=== PATIENT | male | born 1930 | race Caucasian/White ===

== ENCOUNTER 2021-06-25 08:23 | Emergency (ER) | payer MEDICARE ==
[~2021-06-25] VITALS: Wt 77.1 kg
[2021-06-25 09:30] LABS: BASO % 0.2 % (0.0-1.0); HEMATOCRIT 37.4 % (42.0-52.0); LYMPH # 0.5 10*3/uL (1.3-4.4); MEAN CELL VOLUME 92.8 fl (80.0-94.0); MEAN CORPUSCULAR HGB CONC 34.5 g/dl (33.0-37.0); MEAN PLATELET VOLUME 9.4 fl (9.6-12.3); MONO # 0.7 10*3/uL (0.1-1.0); MONO % 6.3 % (3.0-9.0); PLATELET COUNT AUTOMATED 208 10*3/uL (130-400); RED BLOOD COUNT 4.03 10*6/uL (4.50-5.90); RED CELL DISTRI WIDTH 12.7 % (0-14.5); WHITE BLOOD COUNT 11.2 10*3/uL (4.8-10.8)
[2021-06-25 09:56] LABS: ALBUMIN 2.8 gm/dl (3.1-4.5); ALKALINE PHOSPHATASE 75 U/L (45-117); BUN 15 mg/dl (7-24); CHLORIDE 95 mmol/L (98-107); CPK 203 U/L (39-308); CREATININE 0.82 mg/dL (0.70-1.30); SGOT/AST 44 IU/L (3-35); SGPT/ALT 25 U/L (12-78); SODIUM 124 mmol/L (136-145); TOTAL PROTEIN 6.5 gm/dL (6.4-8.2)
[2021-06-25 10:09] LABS: ACT PARTIAL THROMBO TIME 42.1 SECONDS (20.0-32.1)
== END 2021-06-25 10:29 | disposition left against medical advice (07) ==
LOC: ED 08:23
PROVIDERS: Emergency Medicine
DX: U07.1 COVID-19 (principal); J12.82 Pneumonia due to coronavirus disease 2019; E87.1 Hypo-osmolality and hyponatremia; R09.02 Hypoxemia; Z88.2 Allergy status to sulfonamides